=== PATIENT | female | born 1985 | race Two or more races ===

== ENCOUNTER → 2024-11-17 | Outpatient (CLI) | payer MEDICAID, SELFPAY ==
--- NOTE | 2024-11-17 10:00 | XR_ITS ---
Examination: Abdomen sonogram, complete Date and time of exam: November 17, 2024 1030 hours INDICATIONS: Left upper abdominal pain beginning one year ago. Technique: Multiple real-time grayscale transabdominal sonographic images of the abdomen have been obtained. Findings: Normal gallbladder Normal common bile duct 0.4 cm Pancreatic head 3.1 cm Aorta not enlarged Liver 13.5 cm fatty infiltration Normal hepatopedal portal venous flow Patent IVC Right kidney 13.3 cm cortex 1.3 cm Left kidney 12.9 cm cortex 2.4 cm Spleen 8.5 cm IMPRESSION: Normal gallbladder Fatty liver
== END | disposition home or self-care (01) ==
LOC: CDIM 09:50
PROVIDERS: PCP Nurse Practitioner Family; Referring Provider Internal Medicine Gastroenterology; Visit Provider Internal Medicine Gastroenterology
DX: K76.0 Fatty (change of) liver, not elsewhere classified (principal)
CPT/HCPCS: 76700

== ENCOUNTER 2025-02-09 11:28 | Outpatient (RCR) | payer MEDICAID, SELFPAY ==
--- NOTE | 2025-02-09 12:30 | XR_ITS ---
Examination: FLYNN, hepatobiliary radioisotope scan Gallbladder ejection fraction study. Date and time of exam: February 09, 2025 at 12:38 PM Comparison November 21, 2023 INDICATION: Nausea heartburn sharp epigastric pain one year Technique: 5.7 mCi of 99M Hepatolite administered. Serial imaging then obtained from immediate through 60 minutes. 1.5 mcg selective catheter Kinevac administered for gallbladder ejection fraction study. Findings: Radioisotope activity within the liver is reasonably homogenous. Gallbladder, common bile duct small bowel activity noted Impression: Gallbladder activity Normal gallbladder ejection fraction, 76%
== END 2025-02-14 23:59 | disposition home or self-care (01) ==
LOC: SNUC 11:28
PROVIDERS: Referring Provider Internal Medicine Gastroenterology; Visit Provider Internal Medicine Gastroenterology
DX: R10.9 Unspecified abdominal pain (principal)
CPT/HCPCS: 78227; A9537; J2805

== ENCOUNTER 2025-07-16 19:43 | Emergency (ER) | payer MEDICAID, SELFPAY ==
[2025-07-16] VITALS (10 sets, daily range): BP systolic 113–173; BP diastolic 73–98; PULSE 118–151; RESP 20–32; TEMP 37.5–39.6; O2SAT 94–99; BMI 30.6
--- NOTE | 2025-07-16 19:48 | EKG_ITS ---
[facility] Test Date: 2025-07-16 Pat Name: ELISE CHACON Department: Room: - Gender: Female [employer]: : 1985 Requested By: Salas Savage Order Number: [id number] Reading MD: Salas Savage Measurements Intervals [place] Rate: 142 P: 60 OK: 124 QRS: 25 QRSD: 70 T: 6 QT: 282 QTc: 435 Interpretive Statements SINUS TACHYCARDIA, POSSIBLE ATRIAL FLUTTER POSSIBLE RIGHT VENTRICULAR CONDUCTION DELAY [RSR (QR) IN V1/V2] ABNORMAL RHYTHM ECG Compared to ECG 02/24/2022 15:00:06 No significant changes /store/S0/[id number]/[id number].pdf
--- NOTE | 2025-07-16 20:09 | XR_ITS ---
EXAMINATION: AP chest single view TECHNIQUE: AP portable upright chest single view Date and time: 2007 hours, comparison February 24, 2022 INDICATIONS: Shortness of breath sepsis today. FINDINGS: Interval significant bibasilar pneumonia. Normal heart size Mild osteopenia IMPRESSION: Interval significant bibasilar pneumonia
--- NOTE | 2025-07-16 20:10 | PD.EDSOB ---
ED SOB =RME/HPI General Chief Complaint: Shortness of Breath/Dyspnea Stated Complaint: SOB Time Seen by Provider: 07/16/25 20:02 Arrival date/time: 07/16/25 19:43 40-year-old female patient with significant history of diabetes mellitus, was brought in by EMS for evaluation regarding shortness of breath. Patient told me that since earlier today patient felt generalized body weakness, went to sleep and woke up with shortness of breath, febrile, and palpitation. Patient also is coughing. Denies any sore throat denies any abdominal pain no vomiting. Patient dad is also sick with flulike symptoms. Patient was given albuterol breathing treatment on the way to the emergency room. Related Data Home Medications ?Medication ?Instructions ?Recorded ?Confirmed insulin glargine 100 unit/mL (3 20 unit subcut QPM 08/18/22 08/29/22 mL) subcutaneous pen (Lantus Solostar U-100 Insulin) levofloxacin 500 mg tablet 500 mg PO QDAY 08/29/22 08/29/22 Previous Rx's ?Medication ?Instructions ?Recorded blood sugar diagnostic (True #100 ea 02/28/22 Metrix Glucose Test Strip) blood-glucose meter (True Metrix #1 ea 02/28/22 Glucose Meter) lancets 33 gauge (TRUEplus Lancets) #100 ea 02/28/22 pen needle, diabetic 32 gauge x #100 ea 02/28/22 5/32 (BD Ultra-Fine Radha Pen Needle) meloxicam 7.5 mg tablet 7.5 mg PO QDAY #10 tabs 06/09/23 sucralfate 100 mg/mL oral 5 ml PO QID #400 mL 06/09/23 suspension (Carafate) albuterol sulfate 90 mcg/actuation 2 inh inhalation QID PRN shortness 07/16/25 aerosol inhaler of breath or wheezing #8.5 grams doxycycline hyclate 100 mg capsule 100 mg PO BID #14 caps 07/16/25 ibuprofen 600 mg tablet 600 mg PO Q8H PRN fever #30 tabs 07/16/25 oseltamivir 75 mg capsule (Tamiflu) 75 mg PO BID 5 days #10 caps 07/16/25 Allergies Allergy/AdvReac Type Severity Reaction Status Date / Time Penicillins Allergy Unknown ITCHING Verified 06/09/23 09:38 Review of Systems Review of Systems Narrative Review of Systems: Review of system reviewed and within normal limits except mentioned in HPI ED Exam Narrative Physical exam: VITAL SIGNS: Reviewed. GENERAL APPEARANCE: Alert and interactive, follows commands, no acute distress, febrile HEAD AND FACE: Non-traumatic. ENT: PERRL, pink conjunctivitis, eyelid no trauma, Mucous membrane moist. NECK: Supple, nontender, no nuchal rigidity. CHEST: No tenderness, no crepitus, no paradoxical movement, no retractions. LUNGS: Clear, well ventilated, symmetric, no rales, no wheezing, no ronchi, no stridor, good breath sounds bilaterally. HEART: Tachycardic, no murmur, no gallops. ABDOMEN: Soft, positive bowel sounds, nondistended, no guarding, nontender, no rebound, no masses, RECTAL: Deferred. GENITAL: Deferred. NEUROLOGICAL: Gross motor function intact sensory function intact, Appropriate for age. MUSCULOSKELETAL: low back nontender, full range of motion. EXTREMITIES: Nontender, full range of motion. SKIN: Color pink, dry, no rash, no lacerations, no abrasions, no contusions. LYMPHATICS: Deferred. Course Quality Measures none Orders Category Date Time Status Bedside COVID-19 Antigen Test NOW Care 07/16/25 20:08 Completed Bedside Influenza A&B Antigen Test NOW Care 07/16/25 20:09 Completed Senior Materials Analyst STAT Care 07/16/25 20:08 Completed Continuous Pulse Oximetry STAT Care 07/16/25 20:08 Completed EKG (ED ONLY) *Do not use* NOW Care 07/16/25 19:48 Completed EKG (ED ONLY) *Do not use* NOW Care 07/16/25 20:08 Completed Insert IV NOW Care 07/16/25 20:08 Completed NPO STAT Care 07/16/25 20:08 Completed Strict Intake and Output Routine Care 07/16/25 20:08 Ordered EKG (ED Only) Stat Exams 07/16/25 19:48 Draft EKG (ED Only) Stat Exams 07/16/25 20:08 Ordered XR chest 1V SEPSIS PROTOCOL Stat Exams 07/16/25 20:09 Completed B-Type Natriuretic Peptide Stat Lab 07/16/25 19:56 Completed Blood Culture (Lab) Stat Lab 07/16/25 19:56 Received CBC Stat Lab 07/16/25 19:56 Completed Comprehensive Metabolic Panel Stat Lab 07/16/25 19:56 Completed LDH (Lactate Dehydrogenase) Stat Lab 07/16/25 19:56 Completed Lactate (Lactic Acid) Stat Lab 07/16/25 19:56 Completed Lipase Stat Lab 07/16/25 19:56 Completed Magnesium Stat Lab 07/16/25 19:56 Completed Partial Thromboplastin Time Stat Lab 07/16/25 19:56 Completed Phosphorous Stat Lab 07/16/25 19:56 Completed Procalcitonin Stat Lab 07/16/25 19:56 Completed Prothrombin Time with INR Stat Lab 07/16/25 19:56 Completed Troponin I Stat Lab 07/16/25 19:56 Completed Urinalysis, C/S if Indicated Stat Lab 07/16/25 21:00 Completed Urine Culture Stat Lab 07/16/25 21:00 Received Acetaminophen Tab [Tylenol ES Tab] Med 07/16/25 20:06 Discontinued 1,000 mg PO X1 ONE Azithromycin Inj [Zithromax Inj] 500 mg Med 07/16/25 22:54 Discontinued Sodium Chloride 0.9% 250 ml [Ns] 250 ml IV X1 Ibuprofen Tab [Motrin Tab] Med 07/16/25 20:07 Discontinued 800 mg PO X1 ONE Levalbuterol Rt [Xopenex Rt Zuly] Med 07/16/25 20:48 Discontinued 1.25 mg INH X1 ONE Oseltamivir [Tamiflu] Med 07/16/25 20:17 Discontinued 75 mg PO X1 ONE Potassium Chloride [K-Dur] Med 07/16/25 21:13 Discontinued 40 meq PO X1 ONE Ringers Lactated 1000 ml [Lactated Ringers] 1,000 ml Med 07/16/25 20:07 Discontinued IV 999 mls/hr Ringers Lactated 1000 ml [Lactated Ringers] 1,000 ml Med 07/16/25 21:48 Discontinued IV 999 mls/hr Sodium Chloride Rt Zuly 0.9% [NS Rt Zuly 0.9%] Med 07/16/25 20:48 Discontinued 3 ml INH PRN PRN cefTRIAXone/D5w 1gm IV premix [Rocephin/D5w 1gm IV Med 07/16/25 20:09 Discontinued premix] 1 gm in 50 ml IV X1 dexAMETHasone INJ [Decadron Inj] Med 07/16/25 20:07 Discontinued 10 mg IVP X1 ONE Oxygen Delivery NOW RT 07/16/25 20:08 Completed Vital Signs Vital signs: Vital Signs Temperature 103.2 F H 07/16/25 20:00 Pulse Rate 151 H 07/16/25 20:00 Respiratory Rate 25 H 07/16/25 20:00 Blood Pressure 173/98 H 07/16/25 20:00 Pulse Oximetry (%) 95 07/16/25 20:00 Oxygen Delivery Method Room Air 07/16/25 20:00 Shortness of Breath / Dyspnea MDM Narrative MDM Narrative:: 07/16/25 19:43 40-year-old female patient with significant history of diabetes mellitus, was brought in by EMS for evaluation regarding shortness of breath. Patient told me that since earlier today patient felt generalized body weakness, went to sleep and woke up with shortness of breath, febrile, and palpitation. Patient also is coughing. Denies any sore throat denies any abdominal pain no vomiting. Patient dad is also sick with flulike symptoms. Patient was given albuterol breathing treatment on the way to the emergency room. Patient EKG shows sinus tachycardia, ventricular to 152 bpm, no ST segment elevation depression noted. Patient received Tylenol Motrin, cooling measures, 2 L of IV fluids, Tamiflu, patient tested positive for flu. Was also given Zithromax IV and Suprax and IV for bibasilar pneumonia. The rest of the labs came back unremarkable. Patient verbalized significant improvement of symptoms after all the medication was given. Patient was discharged stable with blood pressure 113/73, heart rate of 118 temperature of 99.5 and patient was satting 94% on room air I will discharge her on Tamiflu, doxycycline. Patient is stable for charged home Patient data External records reviewed:: None Clinical information provided by:: patient and family Social determinants that could affect healthcare access:: none Patient has the following chronic illnesses:: Diabetes mellitus How is presenting disease/condition affected by chronic disease/condition?: exacerbated by Evaluation data The following diagnostics were reviewed and interpreted by me:: lab results, radiology exam(s) and EKG tracing(s) Lab and/or radiology exams considered but not ordered:: None Interpretation Summary: See above Medications / Prescriptions Medications or Prescriptions considered but not ordered:: None Medication administrations:: Medication Administration History Discontinued Medications Acetaminophen (Acetaminophen 500 Mg Tablet) 1,000 mg PO X1 ONE Stop: 07/16/25 20:07 Last Admin: 07/16/25 20:26 Dose: 1,000 mg Documented By: KARI Dexamethasone Sodium Phosphate (Dexamethasone Sod Phos Inj 10 Mg/Ml Vial) 10 mg IVP X1 ONE Stop: 07/16/25 20:08 Last Admin: 07/16/25 20:28 Dose: 10 mg Documented By: KARI Lactated Ringer's (Lactated Ringers) 1,000 mls @ 999 mls/hr IV .Q1H1M ONE Stop: 07/16/25 21:07 Last Infusion: 07/16/25 21:37 Dose: Infused Documented By: Admin: 07/16/25 20:26 Dose: 999 mls/hr Documented By: KARI Ceftriaxone Sodium/Dextrose (Rocephin/D5w 1gm Iv Premix) 1 gm in 50 mls @ 100 mls/hr IV X1 ONE Stop: 07/16/25 20:38 Last Infusion: 07/16/25 21:37 Dose: Infused Documented By: Admin: 07/16/25 20:26 Dose: 100 mls/hr Documented By: KARI Lactated Ringer's (Lactated Ringers) 1,000 mls @ 999 mls/hr IV .Q1H1M ONE Stop: 07/16/25 22:48 Last Admin: 07/16/25 21:57 Dose: 999 mls/hr Documented By: KARI Azithromycin 500 mg/ Sodium (Chloride) 250 mls @ 250 mls/hr IV X1 ONE Stop: 07/16/25 23:53 Last Admin: 07/16/25 23:03 Dose: 250 mls/hr Documented By: KARI Ibuprofen (Ibuprofen Tab 400 Mg Tablet) 800 mg PO X1 ONE Stop: 07/16/25 20:08 Last Admin: 07/16/25 20:27 Dose: 800 mg Documented By: KARI Levalbuterol HCl (Levalbuterol Rt 1.25 Mg/0.5 Ml Nebu) 1.25 mg INH X1 ONE Stop: 07/16/25 20:49 Last Admin: 07/16/25 21:14 Dose: 1.25 mg Documented By: MARKO Oseltamivir Phosphate (Oseltamivir 75 Mg Capsule) 75 mg PO X1 ONE Stop: 07/16/25 20:18 Last Admin: 07/16/25 20:27 Dose: 75 mg Documented By: AU Potassium Chloride (Potassium Chloride 20 Meq Tabcr) 40 meq PO X1 ONE Stop: 07/16/25 21:14 Last Admin: 07/16/25 21:57 Dose: 40 meq Documented By: AU Sodium Chloride (Sodium Chloride Rt Zuly 0.9% 3 Ml Nebu) 3 ml INH PRN PRN PRN Reason: SOLN Stop: 08/15/25 20:47 Last Admin: 07/16/25 21:14 Dose: 3 ml Documented By: PAR IV fluids potassium replacement Tamiflu Xopenex azithromycin and ceftriaxone IV Consultations Consultation(s) initiated? (list below): No Diagnosis Shortness of Breath Differential Diagnosis: community acquired pneumonia and asthma with exacerbation Most likely diagnosis given after review of the tests above:: Influenza, pneumonia, fever, history of diabetes mellitus Admission Indicated Admission indicated?: not indicated Admission Request Was there a request for admission?: No Disposition Plan Disposition Plan: Discharge Discharge Attestation Discharge Attestation: The patient and all family members were given an opportunity to ask questions and understood the discharge instructions. Discharge instructions specifically effects, indications for sooner follow up or return to the emergency department, and the expected course of current diagnosis. Patient condition: Stable Discharge Plan Plan Patient Disposition: HOME (Self Care) Discharge Disposition comment: stable Prescriptions/Referrals Prescriptions/Med Rec: New oseltamivir [Tamiflu] 75 mg capsule 75 mg PO BID 5 Days Qty: 10 0RF doxycycline hyclate 100 mg capsule 100 mg PO BID Qty: 14 0RF ibuprofen 600 mg tablet 600 mg PO Q8H PRN (Reason: fever) Qty: 30 0RF albuterol sulfate 90 mcg/actuation HFA aerosol inhaler 2 inh inhalation QID PRN (Reason: shortness of breath or wheezing) Qty: 8.5 0RF No Action levofloxacin 500 mg tablet 500 mg PO QDAY (DME) pen needle, diabetic [BD Ultra-Fine Radha Pen Needle] 32 gauge x 5/32 needle See Rx Instructions .Route Qty: 100 0RF Rx Instructions: As directed (DME) blood-glucose meter [True Metrix Glucose Meter] Misc See Rx Instructions .Route Qty: 1 0RF Rx Instructions: As directed (DME) True Metrix Glucose Test Strip Strip See Rx Instructions .Route Qty: 100 0RF Rx Instructions: As directed (DME) lancets [TRUEplus Lancets] 33 gauge misc See Rx Instructions .Route Qty: 100 0RF Rx Instructions: As directed insulin glargine [Lantus Solostar U-100 Insulin] 100 unit/mL (3 mL) insulin pen 20 unit subcut QPM sucralfate [Carafate] 100 mg/mL suspension 5 ml PO QID Qty: 400 0RF Rx Instructions: swish in mouth and swallow; use after food/drink meloxicam 7.5 mg tablet 7.5 mg PO QDAY Qty: 10 0RF Referrals: Radha Brady FNP [Primary Care Provider] - In 1 week Problem List Clinical Impression: Influenza, PNA (pneumonia) Patient/Caregiver Discharge Instructions Discharge Activity: activity as tolerated Education Materials: ED Influenza (Adult) Additional Instructions: Thank you for the opportunity for serving you today. You are stable for discharged . You are advised to: Follow-up with your PCP in 1 to 2 days Return to ED for worsening of symptoms Increase oral fluids Take medication as prescribed Print Language: [place]i Stand Alone Forms: Anat Award Info., Patient Portal Info Letter JEN/JOSETTE Supervising Physician CARMELA Supervising Physician: MD Whit
[2025-07-16 20:13] LABS: Lactate (Lactic Acid) 2.1 mMol/L (0.4-2.0)
[2025-07-16 20:23] LABS: Basophils # (Auto) 0.1 Thou/mm3 (0.0-0.2); Basophils % (Auto) 1 % (0-2.5); Eosinophils # (Auto) 0.4 Thou/mm3 (0.0-0.5); Eosinophils % (Auto) 5 % (0-10); Hematocrit 43.9 % (36.0-46.0); Hemoglobin 15.0 g/dL (12.0-16.0); Immature Granulocytes Auto 0.03 Thou/mm3 (0.00-0.00); Lymphocytes # (Auto) 1.9 Thou/mm3 (1.0-4.8); Lymphocytes % (Auto) 21 % (10-50); Mean Corpuscular HGB Conc 34.2 g/dl (31.0-37.0); Mean Corpuscular Hemoglobin 29.6 pg (25.0-35.0); Mean Corpuscular Volume 87 fL (80-100); Monocytes # (Auto) 0.6 Thou/mm3 (0.0-0.8); Monocytes % (Auto) 7 % (0-12); Neutrophils # (Auto) 6.0 Thou/mm3 (1.8-7.7); Neutrophils % (Auto) 67 % (37-80); Nucleated Red Blood Cell # 0.00 Thou/mm3 (0.00-0.00); Nucleated Red Blood Cell % 0 /100 WBC (0); Platelet Count 240 Thou/mm3 (140-440); RDW Standard Deviation 38.1 fL (36.4-46.3); Red Blood Count 5.06 Miln/mm3 (4.00-5.20); White Blood Count 9.1 Thou/mm3 (3.6-11.0)
[2025-07-16] MEDS: RINGERS LACTATED 1000 ML 1,000 ML 999 ML IV ×2 (20:26→21:57)
[2025-07-16] MEDS: cefTRIAXone/D5w 1gm IV premix 1 GM/50 ML BAG IV (20:26)
[2025-07-16] MEDS: ACETAMINOPHEN 500 MG TABLET 1000 MG PO (20:26)
[2025-07-16] MEDS: OSELTAMIVIR 75 MG CAPSULE PO (20:27)
[2025-07-16] MEDS: IBUPROFEN TAB 400 MG TABLET 800 MG PO (20:27)
[2025-07-16 20:47] LABS: B-Type Natriuretic Peptide < 20 pg/mL (0-100)
[2025-07-16 20:49] LABS: INR 0.9 (0.9-1.3); Partial Thromboplastin Time 26.2 Seconds (22.0-36.0); Prothrombin Time 10.1 Seconds (9.0-12.2)
[2025-07-16 20:56] LABS: Alanine Aminotransferase 35 U/L (10-49); Albumin, Serum 4.4 gm/dL (3.5-5.0); Albumin/Globulin Ratio 1.1 (1.2-2.2); Alkaline Phosphatase 85 U/L (46-116); Anion Gap 11 (7-16); Aspartate Amino Transferase 42 U/L (0-34); BUN/Creatinine Ratio 6 Ratio (12-20); Bilirubin,Total 0.3 mg/dL (0.3-1.2); Blood Urea Nitrogen 5 mg/dL (9-23); Calcium 9.4 mg/dL (8.3-10.6); Calcium (Corrected) 9.4 mg/dL (8.5-10.1); Carbon Dioxide 26.1 mMol/L (20.0-31.0); Chloride 101 mMol/L (98-107); Creatinine (Component) 0.9 mg/dL (0.6-1.3); Estimated Creatinine Clearance 76.9 mL/min (>60); Globulin 3.9 gm/dL (2.3-3.5); Glucose 199 mg/dL (74-106); LDH (Lactate Dehydrogenase) 337 U/L (120-246); Lipase 38 U/L (12-53); Magnesium 1.9 mg/dL (1.6-2.6); Osmolality,Calculated 278 (275-295); Phosphorous 2.2 mg/dL (2.4-5.1); Potassium 3.2 mMol/L (3.4-5.1); Procalcitonin 0.08 ng/ml (0.0-0.49); Sodium 138 mMol/L (136-145); Total Protein 8.3 gm/dL (5.7-8.2); Troponin I < 0.020 ng/mL (0.0-0.045); eGFR > 60 See Note
[2025-07-16] MEDS: LEVALBUTEROL RT 1.25 MG/0.5 ML NEBU INH (21:14)
[2025-07-16] MEDS: SODIUM CHLORIDE RT SOL 0.9% 3 ML NEBU INH (21:14)
[2025-07-16 21:37] LABS: Collection Type, Urine Clean Catch
[2025-07-16 21:57] LABS: Bacteria,Urine 1+; Bilirubin,Urine Negative (Negative); Blood,Urine Negative (Negative); Clarity,Urine Turbid (Clear/Hazy); Color,Urine Lt-Yellow (Lt Yel-Yel); Glucose, Urine Negative (Negative); Ketones,Urine Negative (Negative); Leukocyte Esterase,Urine Positive (Negative); Nitrite,Urine Negative (Negative); PH,Urine 6.0 (5.0-7.0); Protein,Urine Negative (Neg - Trace); RBC,Urine 4 /hpf (0-3); Specific Gravity,Urine 1.006 (1.001-1.035); Squamous Epithelial Cell,Urine 3 /hpf (0-5); Urobilinogen,Urine Negative mg/dL (0.0-1.0); WBC,Urine 2 /hpf (0-5)
[2025-07-16 21:58] LABS: Culture Indicated,Urine Yes
[2025-07-16] MEDS: AZITHROMYCIN INJ 500 MG in SODIUM CHLORIDE 0.9% 250 ML 250 ML 250 MG IV (23:03)
[2025-07-16 23:22] LABS: Reflex Lactate? Y
== END 2025-07-16 23:48 | disposition home or self-care (01) ==
PROVIDERS: Nurse Practitioner Family; Emergency Provider Emergency Medicine; PCP Nurse Practitioner Family
DX: J11.00 Influenza due to unidentified influenza virus with unspecified type of pneumonia (principal); R00.0 Tachycardia, unspecified
CPT/HCPCS: 36415; 71045; 80053; 81001; 83605; 83615; 83690; 83735; 83880; 84100; 84145; 84484; 85025; 85610; 85730; 87040; 87086; 87502; 87635; 93005; 94640; 96365; 96375; 99285; J0456; J0696; J1100; J7050; J7120; J7612; A9270